=== PATIENT | male | born 1975 | race Two or more races ===

== ENCOUNTER 2018-05-31 17:18 | Emergency (ER) | payer MEDICAID, OTHER, SELFPAY ==
[~2018-05-31] VITALS: Ht 180.3 cm; Wt 66.0 kg
[2018-05-31 17:55] LABS: BASOPHILS % (AUTO) 0.5 % (0-1); EOSINOPHILS # (AUTO) 0.2 X10'3 (0-0.9); EOSINOPHILS % (AUTO) 2.7 % (0-6); HEMATOCRIT 43.5 % (42.0-52.0); HEMOGLOBIN 14.6 g/dl (14.0-17.9); LYMPHOCYTES # (AUTO) 2.8 X10'3 (1.1-4.8); LYMPHOCYTES % (AUTO) 44.1 % (21-51); MEAN CORPUSCULAR HEMOGLOBIN 29.8 PG (27.0-31.0); MEAN CORPUSCULAR HGB CONC 33.6 % (33.0-36.5); MEAN CORPUSCULAR VOLUME 88.6 FL (78-98); MEAN PLATELET VOLUME 9.1 FL (7.4-10.4); MONOCYTES # (AUTO) 0.5 X10'3 (0-0.9); MONOCYTES % (AUTO) 7.9 % (2-12); NEUTROPHILS # (AUTO) 2.9 X10'3 (1.8-7.7); NEUTROPHILS % (AUTO) 44.8 % (42-75); PLATELET COUNT 264 X10'3 (140-440); RED BLOOD COUNT 4.91 X10'6 (4.70-6.10); RED CELL DISTRIBUTION WIDTH 13.5 % (11.5-14.5); WHITE BLOOD COUNT 6.4 X10'3 (4.5-11.0)
[2018-05-31 18:09] LABS: PARTIAL THROMBOPLASTIN TIME 30 SECONDS (22-32)
[2018-05-31 18:11] LABS: ALANINE AMINOTRANSFERASE 111 U/L (12-78); ALBUMIN 3.9 G/DL (3.4-5.0); ALBUMIN/GLOBULIN RATIO 1.1 (1.1-1.5); ALKALINE PHOSPHATASE 114 IU/L (46-116); ANION GAP 9 (8-16); ASPARTATE AMINO TRANSFERASE 33 U/L (10-37); BILIRUBIN,TOTAL 0.4 MG/DL (0.1-1.0); BLOOD UREA NITROGEN 15 MG/DL (7-18); BUN/CREATININE RATIO 16.3 (5.4-32.0); CALCIUM 8.9 MG/DL (8.5-10.1); CHLORIDE 103 MMOL/L (99-107); CREATININE 0.92 MG/DL (0.60-1.10); GLUCOSE 110 MG/DL (70-104); POTASSIUM 3.7 MMOL/L (3.5-5.1); SODIUM 140 MMOL/L (135-145); TOTAL CARBON DIOXIDE 28.1 MMOL/L (24-32); TOTAL PROTEIN 7.5 G/DL (6.4-8.2); eGFR 90 ML/MIN
[2018-05-31 19:50] VITALS: BP 122/41
== END 2018-05-31 20:03 | disposition home or self-care (01) ==
LOC: ER 17:19
DX: R42 Dizziness and giddiness (principal)
CPT/HCPCS: 36415; 70450; 71045; 80053; 84484; 85025; 85610; 85730; 93005; 99285

== ENCOUNTER 2024-05-05 11:56 | Emergency (ER) | payer MEDICAID ==
[~2024-05-05] VITALS: Ht 165.1 cm; Wt 70.9 kg
[2024-05-05] MEDS: acetaminophen 325mg tablet PO ONE (13:59)
[2024-05-05 15:51] VITALS: BP 138/74; PULSE 74; RESP 16; TEMP 98.1; O2SAT 97
== END 2024-05-05 15:55 | disposition home or self-care (01) ==
LOC: ER 11:56
DX: S81.812A Laceration without foreign body, left lower leg, initial encounter (principal); X58.XXXA Exposure to other specified factors, initial encounter; Y93.89 Activity, other specified; Y92.89 Other specified places as the place of occurrence of the external cause; Y99.8 Other external cause status
CPT/HCPCS: 73590; 73630; 76881; 99284; A6449

== ENCOUNTER 2024-05-12 23:33 | Emergency (ER) | payer MEDICAID ==
[~2024-05-12] VITALS: Ht 165.1 cm; Wt 76.4 kg
[2024-05-13] MEDS ORDERED: DOXY-1 PO (02:03)
[2024-05-13] MEDS ORDERED: KEN0.1O TOP (02:03)
[2024-05-13] MEDS: triamcinolone acetonide 40mg/ml inj IM ONE (02:04)
[2024-05-13] MEDS: DOXYCYCLINE 100MG CAPSULE PO STA (02:04)
[2024-05-13] MEDS: triamcinolone acetonide 0.5% cream 15gm TP SCH (02:18)
[2024-05-13 02:25] VITALS: BP 132/76; PULSE 62; RESP 16; TEMP 98.6; O2SAT 99
== END 2024-05-13 02:27 | disposition home or self-care (01) ==
LOC: ER 23:34
DX: L03.116 Cellulitis of left lower limb (principal); L25.9 Unspecified contact dermatitis, unspecified cause; Z79.2 Long term (current) use of antibiotics
CPT/HCPCS: 93971; 96372; 99285; J3301; A6446; A6449